=== PATIENT | male | born 1935 | race African-American/Black ===

== ENCOUNTER 2018-01-18 14:03 | Inpatient (IN) | payer MEDICARE ==
[~2018-01-18] VITALS: Ht 165.1 cm; Wt 96.6 kg
[~2018-01-18 14:03] MED LIST: ASPI-986 PO; CLOP75TA16 PO
[2018-01-18] MEDS ORDERED: SODIUM CHLORIDE 0.9% 1000ML BAG (SEPSIS BOLUS) IV ONE (15:00)
[2018-01-18 15:25] LABS: BASOPHILS % 0.3 % (0.0-2.0); EOSINOPHILS % 0.5 % (0.0-5.0); HEMATOCRIT. 33.9 % (42.0-52.0); HEMOGLOBIN. 11.7 g/dL (14.0-18.0); LYMPHOCYTES % 47.1 % (20.0-50.0); MEAN CORPUSCULAR HEMOGLOBIN 35.1 pg (28.0-32.0); MEAN CORPUSCULAR VOLUME 101.5 fL (80.0-94.0); MEAN PLATELET VOLUME 6.9 fl (7.4-10.4); NEUTROPHILS % 45.1 % (40.0-76.0); PLATELET 217 x1000/uL (130-400); RED BLOOD CELL COUNT 3.34 mill/uL (4.7-6.1)
[2018-01-18 15:31] LABS: CHLORIDE 98 mEq/L (98-107); INR 1.1; PARTIAL THROMBOPLASTIN TIME 21.7 sec (23.4-31.0); PROTHROMBIN TIME 10.7 sec (9.1-11.1)
[2018-01-18] MEDS ORDERED: ASPIRIN 325MG EC TABLET PO ONE (17:00)
[2018-01-18 17:42] LABS: CLARITY URINE CLEAR (CLEAR); COLOR URINE YELLOW (YELLOW); KETONES URINE NEGATIVE (NEGATIVE); LEUKOCYTE ESTERASE URINE 1+ (NEGATIVE); NITRITE URINE NEGATIVE (NEGATIVE); OCCULT BLOOD URINE NEGATIVE (NEGATIVE); PROTEIN URINE NEGATIVE (NEGATIVE); SPECIFIC GRAVITY URINE 1.019 (1.005-1.030)
[2018-01-18] MEDS ORDERED: CLONIDINE 0.1MG TABLET PO PRN (17:45)
[2018-01-18] MEDS ORDERED: ONDANSETRON HCL 4MG/2ML INJ IV PRN (17:45)
[2018-01-18] MEDS ORDERED: TRAMADOL 50MG TABLET PO PRN (17:45)
[2018-01-18] MEDS ORDERED: MAGNESIUM/ALUMINUM HYDROXIDE/SIMETHICONE 30ML UDC PO PRN (17:45)
[2018-01-18] MEDS ORDERED: NA PHOS,M-B/NA PHOS,DI-BA ENEMA 118ML PR PRN (17:45)
[2018-01-18] MEDS ORDERED: NITROGLYCERIN 0.4MG TABLET SL SL PRN (17:45)
[2018-01-18] MEDS ORDERED: DOCUSATE SODIUM 100MG CAPSULE PO PRN (17:45)
[2018-01-18] MEDS ORDERED: IPRATROPIUM/ALBUTEROL 0.5-3(2.5)MG/3ML NEB INH PRN (17:45)
[2018-01-18] MEDS ORDERED: ZOLPIDEM TARTRATE 5MG TABLET PO PRN (17:45)
[2018-01-18] MEDS ORDERED: ACETAMINOPHEN 325MG TABLET PO PRN (17:45)
[2018-01-18] MEDS ORDERED: GUAIFENESIN 200MG/10ML SUGAR FREE UDC PO PRN (17:45)
[2018-01-18 18:13] LABS: *AMPHETAMINES SCREEN URINE NEGATIVE (NEGATIVE); *BARBITURATES SCREEN URINE NEGATIVE (NEGATIVE); *BENZODIAZEPINES SCREEN URINE NEGATIVE (NEGATIVE); *COCAINE SCREEN URINE NEGATIVE (NEGATIVE); CANNABINOID URINE SCREEN NEGATIVE (NEGATIVE); METHADONE URINE SCREEN NEGATIVE (NEGATIVE); OPIATES URINE SCREEN NEGATIVE (NEGATIVE); PHENCYCLIDINE URINE SCREEN NEGATIVE (NEGATIVE)
[2018-01-18 18:20] LABS: T4 FREE 1.07 ng/dL (0.76-1.46)
[2018-01-18 18:40] LABS: FOLIC ACID (FOLATE) SERUM 9.9 ng/mL (>5.38)
[2018-01-18] MEDS ORDERED: LEVOFLOXACIN 500MG PREMIX 100 ML IV NR (20:00)
[2018-01-18 21:45] VITALS: BP 170/85
[2018-01-18] MEDS: FAMOTIDINE 20MG TABLET PO SCH (22:50)
[2018-01-18] MEDS ORDERED: ENOXAPARIN 40MG/0.4ML SYR SUBCUT SCH (23:00)
[2018-01-19] VITALS: BP 115/55
[2018-01-19 02:14] LABS: CREATINE KINASE 124 IU/L (39-308); CREATINE KINASE MB FRACTION 1.4 ng/mL (0.5-3.6)
[2018-01-19 04:00] VITALS: BP 125/63
[2018-01-19 08:00] VITALS: BP 106/61
[2018-01-19] MEDS: FAMOTIDINE 20MG TABLET PO SCH (08:20)
[2018-01-19] MEDS ORDERED: CLOPIDOGREL 75MG TABLET PO SCH (09:00)
[2018-01-19] MEDS ORDERED: ASPIRIN 325MG EC TABLET PO SCH (09:00)
[2018-01-19 10:28] LABS: CREATINE KINASE 85 IU/L (39-308); CREATINE KINASE MB FRACTION 1.2 ng/mL (0.5-3.6)
[2018-01-19 12:00] VITALS: BP 137/59
[2018-01-19 13:58] VITALS: BP 137/59
== END 2018-01-19 16:29 | disposition home or self-care (01) | DRG 312 ==
LOC: ER 14:03 → 8WST 17:23 → ENRESERV 21:15
PROVIDERS: ADMIT Internal Medicine; ATTEND Internal Medicine
DX: R55 Syncope and collapse (principal); E44.1 Mild protein-calorie malnutrition; N39.0 Urinary tract infection, site not specified; E83.52 Hypercalcemia; I25.10 Atherosclerotic heart disease of native coronary artery without angina pectoris; R79.89 Other specified abnormal findings of blood chemistry; Z68.35 Body mass index [BMI] 35.0-35.9, adult; Z79.82 Long term (current) use of aspirin; Z79.899 Other long term (current) drug therapy
CPT/HCPCS: 36415; 71045; 80061; 80305; 82550; 82553; 82607; 82746; 82962; 83036; 83540; 83550; 83605; 83880; 84145; 84439; 84443; 84484; 86850; 86900; 93005; 93970; 96360; 99285; J1650; J1956; J7030

== ENCOUNTER 2019-11-24 08:39 | Emergency (ER) | payer SELFPAY ==
[~2019-11-24] VITALS: Ht 170.2 cm; Wt 82.0 kg
[2019-11-24] MEDS ORDERED: ACETAMINOPHEN WITH CODEINE 300/30MG TABLET PO STA (09:01)
[2019-11-24] MEDS ORDERED: SODIUM CHLORIDE 0.9% 1,000 ML IV ONE (09:01)
[2019-11-24 09:14] LABS: CHLORIDE 104 mEq/L (98-107)
[2019-11-24 09:17] LABS: BASOPHILS % 0.9 % (0.0-2.0); EOSINOPHILS % 0.2 % (0.0-5.0); ETHANOL BLOOD < 10 mg/dL; HEMATOCRIT. 33.9 % (42.0-52.0); HEMOGLOBIN. 11.6 g/dL (14.0-18.0); LYMPHOCYTES % 38.6 % (20.0-50.0); MEAN CORPUSCULAR HEMOGLOBIN 33.8 pg (28.0-32.0); MEAN PLATELET VOLUME 6.7 fl (7.4-10.4); MONOCYTES % 6.2 % (2.0-8.0); NEUTROPHILS % 54.1 % (40.0-76.0); PLATELET 224 x1000/uL (130-400); RED BLOOD CELL COUNT 3.43 mill/uL (4.7-6.1); RED CELL DISTRIBUTION WIDTH 13.2 % (11.6-14.6)
[2019-11-24 11:06] VITALS: BP 143/54
== END 2019-11-24 11:09 | disposition home or self-care (01) ==
LOC: ER 08:39
DX: M25.512 Pain in left shoulder (principal); I95.9 Hypotension, unspecified; M19.90 Unspecified osteoarthritis, unspecified site; E11.9 Type 2 diabetes mellitus without complications
CPT/HCPCS: 36415; 71045; 73030; 80053; 80320; 82962; 83605; 84484; 85025; 87040; 93005; 96360; 99285; J7030; G0480

== ENCOUNTER 2020-09-08 18:12 | Inpatient (IN) | payer MEDICARE ==
[~2020-09-08] VITALS: Ht 177.8 cm; Wt 85.3 kg
[2020-09-08 18:57] LABS: HEMATOCRIT. 30.2 % (42.0-52.0); HEMOGLOBIN. 10.6 g/dL (14.0-18.0); MEAN CORPUSCULAR HEMOGLOBIN 34.2 pg (28.0-32.0); MEAN CORPUSCULAR VOLUME 97.5 fL (80.0-94.0); MEAN PLATELET VOLUME 6.7 fl (7.4-10.4); PLATELET 226 x1000/uL (130-400); RED CELL DISTRIBUTION WIDTH 13.4 % (11.6-14.6)
[2020-09-08 18:59] LABS: CHLORIDE 104 mEq/L (98-107)
[2020-09-08] MEDS ORDERED: CEFTRIAXONE 1 G PREMIX 50 ML IV ONE (19:00)
[2020-09-08] MEDS ORDERED: SODIUM CHLORIDE 0.9% 1000ML BAG (SEPSIS BOLUS) IV ONE (19:00)
[2020-09-08 19:03] LABS: ETHANOL BLOOD 213 mg/dL
[2020-09-08 20:13] LABS: PLATELET ESTIMATE NORMAL
[2020-09-08 22:19] LABS: CLARITY URINE CLEAR (CLEAR); COLOR URINE YELLOW (YELLOW); KETONES URINE TRACE (NEGATIVE); LEUKOCYTE ESTERASE URINE NEGATIVE (NEGATIVE); NITRITE URINE NEGATIVE (NEGATIVE); OCCULT BLOOD URINE NEGATIVE (NEGATIVE); PROTEIN URINE NEGATIVE (NEGATIVE); UROBILINOGEN URINE 0.2 E.U./dL (0.2-1.0)
[2020-09-08 22:35] LABS: *AMPHETAMINES SCREEN URINE NEGATIVE (NEGATIVE); *BARBITURATES SCREEN URINE NEGATIVE (NEGATIVE); *BENZODIAZEPINES SCREEN URINE NEGATIVE (NEGATIVE); *COCAINE SCREEN URINE NEGATIVE (NEGATIVE); CANNABINOID URINE SCREEN NEGATIVE (NEGATIVE); OPIATES URINE SCREEN NEGATIVE (NEGATIVE); PHENCYCLIDINE URINE SCREEN NEGATIVE (NEGATIVE)
[2020-09-08 22:36] LABS: METHADONE URINE SCREEN NEGATIVE (NEGATIVE)
[2020-09-09 01:00] VITALS: BP 170/93
[2020-09-09] MEDS ORDERED: MAGNESIUM/ALUMINUM HYDROXIDE/SIMETHICONE 30ML UDC PO PRN (02:45)
[2020-09-09] MEDS ORDERED: CLONIDINE 0.1MG TABLET PO PRN (02:45)
[2020-09-09] MEDS ORDERED: LORAZEPAM 2MG/ML CPJ IV PRN (02:45)
[2020-09-09] MEDS ORDERED: DOCUSATE SODIUM 100MG CAPSULE PO PRN (02:45)
[2020-09-09] MEDS ORDERED: HYDROCODONE/ACETAMINOPHEN 5/325MG TABLET PO PRN (02:45)
[2020-09-09] MEDS ORDERED: ENOXAPARIN 40MG/0.4ML SYR SUBCUT SCH (02:45)
[2020-09-09] MEDS ORDERED: GUAIFENESIN 200MG/10ML SUGAR FREE UDC PO PRN (02:45)
[2020-09-09] MEDS ORDERED: ACETAMINOPHEN 325MG TABLET PO PRN (02:45)
[2020-09-09] MEDS: ONDANSETRON HCL 4MG/2ML INJ IV PRN (03:11)
[2020-09-09] MEDS: SODIUM CHLORIDE 0.9% 1,000 ML IV SCH ×2 (03:26→14:31)
[2020-09-09] MEDS ORDERED: DEXTROSE 50% WATER 50ML SYRINGE IV PRN (03:45)
[2020-09-09 04:00] VITALS: BP 179/95
[2020-09-09] MEDS: BLOOD SUGAR DIAGNOSTIC STRIP TEST SCH ×4 (06:28→20:52)
[2020-09-09] MEDS: INSULIN LISPRO 100 UNITS/ML SUBCUT SCH ×4 (06:28→20:52)
[2020-09-09 08:00] VITALS: BP 152/83
[2020-09-09] MEDS: MULTIVITAMINS,THER W-MINERALS TABLET PO SCH (08:51)
[2020-09-09] MEDS: THIAMINE HCL 100MG TABLET PO SCH (08:51)
[2020-09-09] MEDS ORDERED: ENOXAPARIN 30MG/0.3ML SYR SUBCUT SCH (09:00)
[2020-09-09 12:00] VITALS: BP 154/77
[2020-09-09 16:00] VITALS: BP 157/76
[2020-09-09 20:00] VITALS: BP 159/70
[2020-09-09] MEDS: AMLODIPINE 5MG TABLET PO SCH (20:53)
[2020-09-10] VITALS: BP 159/67
[2020-09-10] MEDS: SODIUM CHLORIDE 0.9% 1,000 ML IV SCH (02:45)
[2020-09-10 04:00] VITALS: BP 145/65
[2020-09-10] MEDS: BLOOD SUGAR DIAGNOSTIC STRIP TEST SCH ×2 (06:03→11:32)
[2020-09-10] MEDS: INSULIN LISPRO 100 UNITS/ML SUBCUT SCH ×2 (06:03→11:32)
[2020-09-10 06:41] LABS: BASOPHILS % 0.5 % (0.0-2.0); EOSINOPHILS % 1.5 % (0.0-5.0); HEMATOCRIT. 32.7 % (42.0-52.0); HEMOGLOBIN. 11.2 g/dL (14.0-18.0); LYMPHOCYTES % 36.9 % (20.0-50.0); MEAN CORPUSCULAR HEMOGLOBIN 33.2 pg (28.0-32.0); MEAN CORPUSCULAR VOLUME 97.2 fL (80.0-94.0); MEAN PLATELET VOLUME 6.6 fl (7.4-10.4); MONOCYTES % 7.2 % (2.0-8.0); NEUTROPHILS % 53.9 % (40.0-76.0); PLATELET 229 x1000/uL (130-400); RED BLOOD CELL COUNT 3.37 mill/uL (4.7-6.1); RED CELL DISTRIBUTION WIDTH 13.5 % (11.6-14.6)
[2020-09-10 06:42] LABS: CHLORIDE 100 mEq/L (98-107)
[2020-09-10 08:00] VITALS: BP 154/67
[2020-09-10] MEDS: MULTIVITAMINS,THER W-MINERALS TABLET PO SCH (08:38)
[2020-09-10] MEDS: AMLODIPINE 5MG TABLET PO SCH (08:38)
[2020-09-10] MEDS: THIAMINE HCL 100MG TABLET PO SCH (08:38)
[2020-09-10] MEDS: ONDANSETRON HCL 4MG/2ML INJ IV PRN (08:52)
[2020-09-10] MEDS ORDERED: ENOXAPARIN 40MG/0.4ML SYR SUBCUT SCH (09:00)
[2020-09-10 12:00] VITALS: BP 114/89
[2020-09-10 13:51] VITALS: BP 114/89
== END 2020-09-10 15:30 | disposition home health service (06) | DRG 91 ==
LOC: ER 18:12 → 5WST 22:00 → EDBEDREQTM 22:07 → EDBEDREQSVC 22:07 → EDBEDREQ 22:07 → ENRESERV 23:47
PROVIDERS: ADMIT Hospitalist; ATTEND Hospitalist
DX: G92 Toxic encephalopathy (principal); E43 Unspecified severe protein-calorie malnutrition; F10.129 Alcohol abuse with intoxication, unspecified; E11.9 Type 2 diabetes mellitus without complications; I95.9 Hypotension, unspecified; F17.200 Nicotine dependence, unspecified, uncomplicated; I10 Essential (primary) hypertension; Z82.49 Family history of ischemic heart disease and other diseases of the circulatory system; Z71.6 Tobacco abuse counseling; Z71.41 Alcohol abuse counseling and surveillance of alcoholic; Z68.27 Body mass index [BMI] 27.0-27.9, adult
CPT/HCPCS: 36415; 71045; 80053; 80305; 80320; 81003; 82962; 83036; 83605; 83880; 84145; 84484; 85025; 93005; 93306; 93970; 97162; 99291; J0696; J1650; J2405; J7030; G0480

== ENCOUNTER 2021-12-15 10:41 | Inpatient (IN) | payer MEDICARE ==
[~2021-12-15] VITALS: Ht 172.7 cm; Wt 85.3 kg
[2021-12-15 12:10] LABS: BASOPHILS % 0.7 % (0.0-2.0); EOSINOPHILS % 0.5 % (0.0-5.0); HEMATOCRIT. 31.6 % (42.0-52.0); HEMOGLOBIN. 10.8 g/dL (14.0-18.0); LYMPHOCYTES % 34.4 % (20.0-50.0); MEAN CORPUSCULAR HEMOGLOBIN 34.2 pg (28.0-32.0); MEAN PLATELET VOLUME 6.2 fl (7.4-10.4); MONOCYTES % 7.2 % (2.0-8.0); NEUTROPHILS % 57.2 % (40.0-76.0); PLATELET 293 x1000/uL (130-400); RED BLOOD CELL COUNT 3.16 mill/uL (4.7-6.1); RED CELL DISTRIBUTION WIDTH 13.4 % (11.6-14.6)
[2021-12-15 12:22] LABS: CHLORIDE 100 mEq/L (98-107)
[2021-12-15] MEDS ORDERED: SODIUM CHLORIDE 0.9% 1,000 ML IV ONE (12:45)
[2021-12-15 16:37] LABS: CLARITY URINE CLOUDY (CLEAR); COLOR URINE YELLOW (YELLOW); KETONES URINE TRACE (NEGATIVE); LEUKOCYTE ESTERASE URINE 3+ (NEGATIVE); NITRITE URINE NEGATIVE (NEGATIVE); OCCULT BLOOD URINE NEGATIVE (NEGATIVE); PROTEIN URINE TRACE (NEGATIVE); SPECIFIC GRAVITY URINE 1.014 (1.005-1.030)
[2021-12-15] MEDS ORDERED: CEFTRIAXONE 2 G PREMIX 50 ML IV ONE (17:15)
[2021-12-15] MEDS ORDERED: CEFTAZIDIME PENTAHYDRATE IV SCH (17:45)
[2021-12-15] MEDS ORDERED: CEFTRIAXONE 2 G in DEXTROSE 5% WATER 50 ML IV SCH (17:45)
[2021-12-15] MEDS ORDERED: SODIUM CHLORIDE 0.9% IV SCH (17:45)
[2021-12-15] MEDS ORDERED: GUAIFENESIN 200MG/10ML SUGAR FREE UDC PO PRN (18:15)
[2021-12-15] MEDS ORDERED: MAGNESIUM/ALUMINUM HYDROXIDE/SIMETHICONE 30ML UDC PO PRN (18:15)
[2021-12-15] MEDS ORDERED: IPRATROPIUM/ALBUTEROL 0.5-3(2.5)MG/3ML NEB NEB PRN (18:15)
[2021-12-15] MEDS ORDERED: ACETAMINOPHEN 325MG TABLET PO PRN ×2 (18:15)
[2021-12-15] MEDS: SODIUM CHLORIDE 0.9% 1,000 ML IV SCH (18:15)
[2021-12-15] MEDS ORDERED: HYDROCODONE/ACETAMINOPHEN 5/325MG TABLET PO PRN (18:15)
[2021-12-15] MEDS ORDERED: ONDANSETRON HCL 4MG/2ML INJ IV PRN (18:15)
[2021-12-15] MEDS ORDERED: LORAZEPAM 2MG/ML CPJ IV PRN (19:15)
[2021-12-15 19:16] LABS: *AMPHETAMINES SCREEN URINE NEGATIVE (NEGATIVE); *BARBITURATES SCREEN URINE NEGATIVE (NEGATIVE); *BENZODIAZEPINES SCREEN URINE NEGATIVE (NEGATIVE); *COCAINE SCREEN URINE NEGATIVE (NEGATIVE); CANNABINOID URINE SCREEN PRESUMTIVE POSITIVE (NEGATIVE); METHADONE URINE SCREEN NEGATIVE (NEGATIVE); OPIATES URINE SCREEN NEGATIVE (NEGATIVE); PHENCYCLIDINE URINE SCREEN NEGATIVE (NEGATIVE)
[2021-12-15 19:48] LABS: VITAMIN B12 SERUM 660 pg/mL (211-911)
[2021-12-15] MEDS: ENOXAPARIN 40MG/0.4ML SYR SUBCUT SCH (20:00)
[2021-12-15] MEDS ORDERED: CEFTRIAXONE 1,000 MG in DEXTROSE 5% WATER 50 ML IV SCH (20:00)
[2021-12-15] MEDS: CLONIDINE 0.1MG TABLET PO PRN (23:36)
[2021-12-16 01:26] VITALS: BP 139/71
[2021-12-16 08:24] VITALS: BP 151/70
[2021-12-16] MEDS: PANTOPRAZOLE 40MG DR TABLET PO SCH (08:44)
[2021-12-16 08:52] LABS: CHLORIDE 101 mEq/L (98-107)
[2021-12-16 09:04] LABS: BASOPHILS % 0.7 % (0.0-2.0); EOSINOPHILS % 2.2 % (0.0-5.0); HEMATOCRIT. 30.4 % (42.0-52.0); HEMOGLOBIN. 10.4 g/dL (14.0-18.0); LYMPHOCYTES % 34.7 % (20.0-50.0); MEAN CORPUSCULAR HEMOGLOBIN 34.2 pg (28.0-32.0); MEAN CORPUSCULAR VOLUME 99.9 fL (80.0-94.0); MEAN PLATELET VOLUME 6.2 fl (7.4-10.4); MONOCYTES % 6.3 % (2.0-8.0); NEUTROPHILS % 56.1 % (40.0-76.0); PLATELET 302 x1000/uL (130-400); RED BLOOD CELL COUNT 3.04 mill/uL (4.7-6.1); RED CELL DISTRIBUTION WIDTH 13.4 % (11.6-14.6)
[2021-12-16 09:10] LABS: PHOSPHORUS 2.9 mg/dL (2.5-4.9); T4 FREE 0.86 ng/dL (0.76-1.46)
[2021-12-16] MEDS ORDERED: PNEUMOCOCCAL 23-VAL P-SAC VAC 0.5 ML IM ONE (10:00)
[2021-12-16] MEDS ORDERED: INFLUENZA VACCINE 05/PF 0.5 ML SYRINGE IM ONE (10:00)
[2021-12-16 10:03] LABS: VITAMIN B12 SERUM 620 pg/mL (211-911)
[2021-12-16 12:48] VITALS: BP_SYST 121; BP_SYST 135; BP_DIAS 52; BP_DIAS 67
[2021-12-16] MEDS: AMLODIPINE 5MG TABLET PO SCH (13:31)
[2021-12-16] MEDS: SODIUM CHLORIDE 0.9% 1,000 ML IV SCH (14:15)
[2021-12-16] MEDS: CEFTRIAXONE 1,000 MG in DEXTROSE 5% WATER 50 ML IV SCH (15:11)
[2021-12-16 16:00] VITALS: BP 132/78
[2021-12-16 20:00] VITALS: BP 151/71
[2021-12-16] MEDS: ENOXAPARIN 40MG/0.4ML SYR SUBCUT SCH (20:00)
[2021-12-17] VITALS (8 sets, daily range): BP systolic 124–171; BP diastolic 59–75
[2021-12-17 06:54] LABS: HEMATOCRIT 33.7 % (42.0-52.0); HEMOGLOBIN 11.5 g/dL (14.0-18.0); MEAN CORPUSCULAR HEMOGLOBIN 34.3 pg (28.0-32.0); MEAN CORPUSCULAR VOLUME 100.4 fL (80.0-94.0); PLATELET 320 x1000/uL (130-400); RED BLOOD CELL COUNT 3.35 mill/uL (4.7-6.1); RED CELL DISTRIBUTION WIDTH 13.4 % (11.6-14.6)
[2021-12-17 07:14] LABS: CHLORIDE 102 mEq/L (98-107)
[2021-12-17] MEDS: AMLODIPINE 5MG TABLET PO SCH (08:48)
[2021-12-17] MEDS: PANTOPRAZOLE 40MG DR TABLET PO SCH (08:48)
[2021-12-17] MEDS: SODIUM CHLORIDE 0.9% 1,000 ML IV SCH (10:39)
[2021-12-17] MEDS: CLONIDINE 0.1MG TABLET PO PRN (11:45)
[2021-12-17] MEDS ORDERED: AMLO5TAB88 PO ×2 (13:00)
[2021-12-17] MEDS ORDERED: CARV3.1242 PO ×2 (13:00)
[2021-12-17] MEDS ORDERED: CARV6.2548 PO ×3 (13:08)
[2021-12-17] MEDS: CEFTRIAXONE 1,000 MG in DEXTROSE 5% WATER 50 ML IV SCH (14:32)
== END 2021-12-17 17:45 | disposition home health service (06) | DRG 690 ==
LOC: ER 10:41 → EDBEDREQ 17:15 → EDBEDREQTM 17:15 → EDBEDREQSVC 17:15 → SUPCPDRO 18:03 → ENRESERV 22:45 → 6WST 23:40
PROVIDERS: ADMIT Internal Medicine; ATTEND Internal Medicine
DX: N39.0 Urinary tract infection, site not specified (principal); E87.20 Acidosis, unspecified; E44.1 Mild protein-calorie malnutrition; I95.1 Orthostatic hypotension; I11.0 Hypertensive heart disease with heart failure; I35.0 Nonrheumatic aortic (valve) stenosis; F03.90 Unspecified dementia, unspecified severity, without behavioral disturbance, psychotic disturbance, mood disturbance, and anxiety; D53.9 Nutritional anemia, unspecified; I50.9 Heart failure, unspecified; E11.9 Type 2 diabetes mellitus without complications; F17.290 Nicotine dependence, other tobacco product, uncomplicated; F19.10 Other psychoactive substance abuse, uncomplicated; F10.129 Alcohol abuse with intoxication, unspecified; R01.1 Cardiac murmur, unspecified; Z68.28 Body mass index [BMI] 28.0-28.9, adult
CPT/HCPCS: 36415; 71045; 80048; 80053; 80305; 80320; 81003; 82607; 82746; 83036; 83605; 83735; 83880; 84100; 84145; 84425; 84439; 84443; 84484; 85025; 85027; 87077; 87186; 93005; 93306; 97162; 97166; 99285; C1893; J0696; J0713; J1650; J7060; G0480

== ENCOUNTER 2022-03-03 11:12 | Inpatient (IN) | payer MEDICARE ==
[~2022-03-03] VITALS: Ht 172.7 cm; Wt 83.0 kg
[~2022-03-03 11:12] MED LIST changes: -ASPI-986 PO; +CARV6.2548 PO; -CLOP75TA16 PO
[2022-03-03 13:08] LABS: BASOPHILS % 0.3 % (0.0-2.0); HEMATOCRIT. 33.8 % (42.0-52.0); HEMOGLOBIN. 11.6 g/dL (14.0-18.0); LYMPHOCYTES % 10.5 % (20.0-50.0); MEAN CORPUSCULAR HEMOGLOBIN 34.1 pg (28.0-32.0); MEAN CORPUSCULAR VOLUME 99.4 fL (80.0-94.0); MEAN PLATELET VOLUME 6.6 fl (7.4-10.4); MONOCYTES % 5.1 % (2.0-8.0); NEUTROPHILS % 84.1 % (40.0-76.0); PLATELET 199 x1000/uL (130-400); RED CELL DISTRIBUTION WIDTH 13.4 % (11.6-14.6)
[2022-03-03 13:15] LABS: CHLORIDE 96 mEq/L (98-107)
[2022-03-03 13:24] LABS: INR 1.1; PARTIAL THROMBOPLASTIN TIME 27.9 sec (23.4-31.0); PROTHROMBIN TIME 11.3 sec (9.6-11.0)
[2022-03-03 15:29] LABS: HEMATOCRIT 32.5 % (42.0-52.0); HEMOGLOBIN 11.3 g/dL (14.0-18.0); MEAN CORPUSCULAR HEMOGLOBIN 34.1 pg (28.0-32.0); MEAN CORPUSCULAR VOLUME 98.4 fL (80.0-94.0); PLATELET 193 x1000/uL (130-400); RED BLOOD CELL COUNT 3.31 mill/uL (4.7-6.1); RED CELL DISTRIBUTION WIDTH 13.3 % (11.6-14.6)
[2022-03-03] MEDS ORDERED: IOHEXOL-300 100 ML BOTTLE ONE (18:28)
[2022-03-03 19:04] LABS: CLARITY URINE CLEAR (CLEAR); COLOR URINE YELLOW (YELLOW); KETONES URINE 2+ (NEGATIVE); LEUKOCYTE ESTERASE URINE 2+ (NEGATIVE); NITRITE URINE POSITIVE (NEGATIVE); OCCULT BLOOD URINE TRACE (NEGATIVE); PH URINE 5.5 (4.5-8.0); PROTEIN URINE TRACE (NEGATIVE); SPECIFIC GRAVITY URINE 1.034 (1.005-1.030); UROBILINOGEN URINE 0.2 E.U./dL (0.2-1.0)
[2022-03-03] MEDS ORDERED: ACETAMINOPHEN 325MG TABLET PO PRN ×2 (20:30)
[2022-03-03] MEDS ORDERED: HYDRALAZINE 20MG/ML VIAL IV PRN (20:30)
[2022-03-03] MEDS ORDERED: CLONIDINE 0.1MG TABLET PO PRN (20:30)
[2022-03-03] MEDS ORDERED: ONDANSETRON HCL 4MG/2ML INJ IV PRN (20:30)
[2022-03-03] MEDS ORDERED: LORAZEPAM 2MG/ML CPJ IV PRN (20:30)
[2022-03-03] MEDS ORDERED: MVI, ADULT NO.1 10 ML, FOLIC ACID 1 MG, THIAMINE HCL 100 MG in SODIUM CHLORIDE 0.9% 1,0... IV SCH ×4 (22:00)
[2022-03-04 02:30] VITALS: BP 185/79
[2022-03-04 08:00] VITALS: BP 132/62
[2022-03-04] MEDS: PANTOPRAZOLE SODIUM 40 MG/VIAL IV SCH (08:50)
[2022-03-04] MEDS: AMLODIPINE 5MG TABLET PO SCH (08:50)
[2022-03-04] MEDS: SODIUM CHLORIDE 0.9% 1,000 ML IV SCH ×2 (10:40→16:30)
[2022-03-04 12:00] VITALS: BP 131/59
[2022-03-04 13:10] LABS: HEMATOCRIT 33.4 % (42.0-52.0); HEMOGLOBIN 11.3 g/dL (14.0-18.0); MEAN CORPUSCULAR HEMOGLOBIN 33.7 pg (28.0-32.0); MEAN CORPUSCULAR VOLUME 99.6 fL (80.0-94.0); PLATELET 189 x1000/uL (130-400); RED BLOOD CELL COUNT 3.35 mill/uL (4.7-6.1); RED CELL DISTRIBUTION WIDTH 13.4 % (11.6-14.6)
[2022-03-04 16:00] VITALS: BP 131/58
[2022-03-04 20:00] VITALS: BP 139/67
[2022-03-05] VITALS: BP 129/54
[2022-03-05 04:00] VITALS: BP 141/71
[2022-03-05 07:51] VITALS: BP 154/74
[2022-03-05] MEDS: PANTOPRAZOLE SODIUM 40 MG/VIAL IV SCH (08:44)
[2022-03-05] MEDS: AMLODIPINE 5MG TABLET PO SCH (08:45)
[2022-03-05 11:55] VITALS: BP 153/75
[2022-03-05 15:39] LABS: HEMATOCRIT 31.6 % (42.0-52.0); HEMOGLOBIN 10.9 g/dL (14.0-18.0); MEAN CORPUSCULAR HEMOGLOBIN 33.9 pg (28.0-32.0); MEAN CORPUSCULAR VOLUME 98.6 fL (80.0-94.0); PLATELET 168 x1000/uL (130-400); RED BLOOD CELL COUNT 3.21 mill/uL (4.7-6.1); RED CELL DISTRIBUTION WIDTH 13.1 % (11.6-14.6)
[2022-03-05 15:44] VITALS: BP 115/59
[2022-03-05 16:01] VITALS: BP 115/89
== END 2022-03-05 16:45 | disposition home or self-care (01) | DRG 378 ==
LOC: ER 11:12 → MICUSO 17:17 → 7WST 03-04 02:31
PROVIDERS: ADMIT Internal Medicine; ATTEND Internal Medicine
DX: K57.31 Diverticulosis of large intestine without perforation or abscess with bleeding (principal); E87.1 Hypo-osmolality and hyponatremia; I10 Essential (primary) hypertension; F03.90 Unspecified dementia, unspecified severity, without behavioral disturbance, psychotic disturbance, mood disturbance, and anxiety; E11.9 Type 2 diabetes mellitus without complications; F17.290 Nicotine dependence, other tobacco product, uncomplicated; R41.89 Other symptoms and signs involving cognitive functions and awareness
CPT/HCPCS: 36415; 74177; 80053; 81003; 82270; 85025; 85027; 86850; 86900; 87077; 87186; 99285; C9113; J0360; J3411; J3490; J7030; Q9967